=== PATIENT | male | born 1980 | race Caucasian/White ===

== ENCOUNTER 2018-11-05 14:12 | Emergency (ER) | payer OTHER ==
[~2018-11-05] VITALS: Ht 182.9 cm; Wt 90.7 kg
[~2018-11-05 14:12] MED LIST: IBUP800 PO; METCAR500 PO; Prednisone20 MG PO; Robaxin500 MG PO
[2018-11-05] MEDS ORDERED: NAPR550 PO (14:53)
[2018-11-05] MEDS ORDERED: HYDR1TAB94 PO (14:53)
[2018-11-05] MEDS ORDERED: META800 PO (14:53)
== END 2018-11-05 15:14 | disposition home or self-care (01) ==
LOC: ER 14:12
DX: G89.29 Other chronic pain (principal); M54.5 Low back pain; F17.200 Nicotine dependence, unspecified, uncomplicated
CPT/HCPCS: 96372; 99283-25; J1100